=== PATIENT | female | born 1985 | race African-American/Black ===

== ENCOUNTER 2023-12-21 20:17 | Emergency (ER) | payer OTHER ==
[2023-12-21 20:26] VITALS: BP 130/79; TEMP 98.8; BMI 25.0
[2023-12-21 21:09] LABS: BASO % 0.6 % (0-2.0); EOS % 0.9 % (0-4.5); HEMATOCRIT 36.9 % (32.4-45.2); HEMOGLOBIN 12.3 GM/dL (10.7-15.3); LYMPH % 26.1 % (8-40); MCH 26.6 pg (25.7-33.7); MCHC 33.3 g/dl (32.0-36.0); MEAN PLT VOLUME 8.8 fl (7.5-11.1); MONO % 5.8 % (3.8-10.2); NEUT % 66.6 % (42.8-82.8); PLATELET COUNT 217 10^3/uL (134-434); RBC 4.62 M/mm3 (3.60-5.2); RDW 13.3 % (11.6-15.6); WHITE BLOOD COUNT 6.7 K/mm3 (4.0-10.0)
[2023-12-21 21:12] LABS: VENOUS BASE EXCESS -1.2 mmol/L (-2-2); VENOUS O2 SATURATION 33.1 % (70-80); VENOUS PCO2 46.6 mmHg (38-52); VENOUS PH 7.344 (7.310-7.410)
[2023-12-21 21:17] LABS: POTASSIUM 3.7 mmol/L (3.5-5.1)
[2023-12-21 21:19] LABS: CALCIUM 9.6 mg/dL (8.5-10.1)
[2023-12-21 21:20] LABS: ALBUMIN 3.8 g/dl (3.4-5.0); BLOOD UREA NITROGEN 15.1 mg/dL (7-18)
[2023-12-21 21:23] LABS: CREATININE 0.9 mg/dL (0.55-1.3)
[2023-12-21 21:24] LABS: BILIRUBIN,TOTAL 0.3 mg/dL (0.2-1); TOT PROT 7.3 g/dl (6.4-8.2)
[2023-12-21 22:35] LABS: ARTERIAL BLD GAS O2 SATURATION 75.1 % (95-98); ARTERIAL BLOOD GAS BASE EXCESS 2.2 mmol/L (-2-2); ARTERIAL BLOOD GAS PO2 41.5 mmHg (80-100); ARTERIAL BLOOD GAS pH 7.373 (7.350-7.450)
[2023-12-21 23:06] VITALS: PULSE 78; RESP 16
== END 2023-12-21 23:07 | disposition home or self-care (01) ==
LOC: JER 20:17
DX: R07.89 Other chest pain (principal); T58.91XA Toxic effect of carbon monoxide from unspecified source, accidental (unintentional), initial encounter
CPT/HCPCS: 36415; 36600; 71046-TC-FY; 80053; 82375; 82803; 84484; 84703; 85025; 93005; 93010; 99285-25